=== PATIENT | male | born 1950 | race Caucasian/White ===

== ENCOUNTER 2016-11-03 16:15 | Emergency (ER) | payer OTHER ==
[2016-11-03 16:45] LABS: BASOPHIL 0.4 % (0-2); EOSINOPHIL 0.1 % (0-5); HCT 45.2 % (42.0-52.0); LYMPHOCYTE 24.5 % (15-48); MCH 30.2 pg (25.0-31.0); MCHC 35.4 g/dL (32.0-36.0); MCV 85.3 fL (78.0-100.0); MONOCYTE 13.1 % (0-12); MPV 10.4 fL (6.0-9.5); NEUTROPHIL 61.9 % (41-80); PLT 176 K/uL (150-400); RDW 12.9 % (11.5-14.0); WBC 8.3 K/uL (4.0-10.5)
[2016-11-03 17:02] LABS: INR 1.01 (0.9-1.2); PROTHROMBIN TIME 12.9 SECONDS (11.7-14.0); PTT 29.2 SECONDS (23.2-31.4)
[2016-11-03 17:11] LABS: ALBUMIN 4.6 g/dL (3.4-4.8); BILIRUBIN - TOTAL 0.4 mg/dL (0.1-1.0); CREATININE 1.1 mg/dL (0.7-1.2); GLOBULIN (CALCULATION) 2.4 g/dL (2.2-4.2); MAGNESIUM 2.21 mg/dL (1.40-2.10); POTASSIUM 4.4 mmol/L (3.5-5.1)
[2016-11-03 17:15] LABS: CKMB 3.68 ng/mL (0.97-4.94); MYOGLOBIN 31 ng/mL (26-65); TROPONIN T < 0.010 ng/mL
[2016-11-03 17:16] LABS: PRO-BNP 492 pg/mL (0-125)
== END 2016-11-03 21:00 | disposition home or self-care (01) ==
LOC: FER 16:15
PROVIDERS: Nurse Practitioner
DX: R07.89 Other chest pain (principal); I10 Essential (primary) hypertension; I48.92 Unspecified atrial flutter; Z79.82 Long term (current) use of aspirin; Z79.899 Other long term (current) drug therapy
CPT/HCPCS: 36415; 71010; 80053; 82550; 82553; 83735; 83874; 83880; 84484; 85025; 85379; 85610; 85730; 93005